=== PATIENT | female | born 1965 | race Caucasian/White ===

== ENCOUNTER 2017-10-11 08:09 | Emergency (ER) | payer OTHER ==
[~2017-10-11] VITALS: Ht 165.1 cm; Wt 91.3 kg
[2017-10-11] MEDS ORDERED: SYNT175T2 (08:26)
[2017-10-11] MEDS ORDERED: NS 1,000 ML IV ONE (10:15)
[2017-10-11] MEDS ORDERED: KETOROLAC 30 MG/ML VIAL (J1885) IV ONE (10:15)
[2017-10-11 10:27] LABS: BASO % 0.5 % (0.0-1.0); EOS # 0.1 10^3/uL (0.0-0.50); EOS % 2.3 % (0.0-3.0); IMMATURE GRANULOCYTE % 0.4 % (0-0); LYMPH # 1.8 10^3/uL (1.5-4.5); MEAN CORPUSCULAR HEMOGLOBIN 30.8 pg (27.0-33.0); MEAN CORPUSCULAR VOLUME 93.1 fl (80.0-96.0); MONO # 0.2 10^3/uL (0.0-0.8); MONO % 4.2 % (0.0-5.0); NEUTROPHILS # 3.5 10^3/uL (1.8-7.7); NEUTROPHILS % 61.6 % (36.0-66.0); PLATELET COUNT, AUTOMATED 378 10^3/uL (150-450); RED CELL DISTRIBUTION WIDTH 12.9 % (11.5-14.5); WHITE BLOOD COUNT 5.7 10^3/uL (4.0-10.0)
[2017-10-11 10:28] LABS: CONTROL LINE UCG INT CTR LINE PRESENT
[2017-10-11 10:54] LABS: ALBUMIN 4.1 GM/DL (3.2-5.2); ALBUMIN/GLOBULIN RATIO 1.41 (1.00-1.93); ALKALINE PHOSPHATASE 58 U/L (45-117); ALT/SGPT 34 U/L (12-78); ANION GAP 7 MEQ/L (8-16); AST/SGOT 20 U/L (7-37); BILIRUBIN,DIRECT 0.1 MG/DL (0.0-0.2); BILIRUBIN,TOTAL 0.4 MG/DL (0.2-1.0); BLOOD UREA NITROGEN 8 MG/DL (7-18); CALCIUM LEVEL 9.1 MG/DL (8.5-10.1); CARBON DIOXIDE LEVEL 28 MEQ/L (21-32); CHLORIDE LEVEL 106 MEQ/L (98-107); CREATININE FOR GFR 0.66 MG/DL (0.55-1.02); GLOMERULAR FILTRATION RATE > 60.0 (>51); GLUCOSE, FASTING 86 MG/DL (70-105); POTASSIUM SERUM 3.9 MEQ/L (3.5-5.1); SODIUM LEVEL 141 MEQ/L (136-145)
--- NOTE | 2017-10-11 11:22 | REP ---
Clinical: Right flank pain. Comparison: 02/19/2015. Findings: The bilateral kidneys, ureters and bladder appear normal. No perinephric stranding, hydroureteronephrosis, intrarenal or obstructing ureteral calculi are identified. Calcification in the right frank pelvis consistent with phlebolith and unchanged compared to 2014. Liver, spleen, pancreas, and bilateral adrenal glands are normal / stable. Incidental left adrenal adenoma remains unchanged. Prior cholecystectomy. The enteric system is without obstruction or acute inflammatory process. Normal terminal ileum and appendix identified in the right lower quadrant. Pelvis demonstrates normal bladder and age-appropriate uterus/adnexa with evidence for prior tubal ligation. No pelvic fluid or ascites. No adenopathy. Abdominal aorta normal caliber. No free air. Musculoskeletal structures are intact. Lung bases are clear. Impression: No acute abdominopelvic pathology appreciated. Specifically, normal appearance to the urinary tract system and normal right lower quadrant/appendix identified. Signed by Geovanny Gautam MD 10/11/2017 11:14 A
[2017-10-11] MEDS ORDERED: CIPR-249 PO (11:37)
[2017-10-11] MEDS ORDERED: CIPROFLOXACIN 500 MG TAB PO ONE (11:45)
[2017-10-11 11:47] VITALS: BP 115/75
== END 2017-10-11 11:49 | disposition home or self-care (01) ==
LOC: M ED 08:09
DX: N30.00 Acute cystitis without hematuria (principal); E07.9 Disorder of thyroid, unspecified; Z87.442 Personal history of urinary calculi
CPT/HCPCS: 74176; 80048; 80076; 81001; 84703; 85025; 87086; 96361; 96374; 99284; J1885

== ENCOUNTER → 2019-01-23 | Outpatient (CLI) | payer OTHER ==
[~2019-01-23] MED LIST: CIPR-249 PO; SYNT175T2
--- NOTE | 2019-01-23 11:43 | REP ---
Left shoulder three views History: Injury There is no acute fracture or dislocation. The joint spaces are normal in appearance. There is deformity of several left ribs. Impression: There is no acute fracture or dislocation. Electronically Signed by Rainer Camp MD 01/23/2019 11:35 A
== END ==
LOC: M LRY 10:49
PROVIDERS: ATTEND Physician Assistant
DX: S49.92XA Unspecified injury of left shoulder and upper arm, initial encounter (principal); X58.XXXA Exposure to other specified factors, initial encounter; Y92.9 Unspecified place or not applicable

== ENCOUNTER 2019-02-03 14:02 | Emergency (ER) | payer OTHER ==
[~2019-02-03] VITALS: Ht 165.1 cm; Wt 90.5 kg
[2019-02-03 14:02] VITALS: BP 146/88
[2019-02-03] MEDS ORDERED: NAPR-50 PO (15:07)
[2019-02-03] MEDS ORDERED: ULTR50TA8 PO (15:07)
== END 2019-02-03 16:48 | disposition home or self-care (01) ==
LOC: M ED 14:02
DX: M75.102 Unspecified rotator cuff tear or rupture of left shoulder, not specified as traumatic (principal); E03.9 Hypothyroidism, unspecified; Z79.899 Other long term (current) drug therapy

== ENCOUNTER → 2019-04-05 | Outpatient (CLI) | payer OTHER ==
[~2019-04-05] MED LIST changes: +CONRAY-43 43% 50ML VIAL (Q9960) As Ordered ONE; +LIDOCAINE 1% MDV 20ML VIAL As Ordered ONE; +NAPR-837 PO; +TRIAMCINOLONE ACETONIDE SUSP 40 MG/ML VIAL (J3301) As Ordered ONE; +ULTR50TA8 PO
--- NOTE | 2019-04-06 11:00 | REP ---
Left shoulder injection The procedure was performed under the direct supervision of Dr. kimbrough. The benefits and risks including but not limited to pain infection bleeding and anaphylaxis were explained to the patient and informed consent was obtained. The left glenohumeral joint space was localized using fluoroscopic guidance. The skin was prepped and draped in a sterile fashion. 1% lidocaine was used as a local anesthetic. Using fluoroscopic guidance a 22-gauge spinal needle was inserted and advanced into the joint. 1 ml of Conray 43 was injected to verify placement. 4 ml of a solution containing 3 ml of 1% lidocaine and 1 ml of Kenalog 40 mg injected. The needle was then removed. The patient tolerated the procedure well and there were no immediate complications. Less than 6 seconds of fluoroscopy time was utilized for this procedure. Reviewed by MAKI Gomes 04/05/2019 03:13 P Electronically Signed by Chato Kimbrough MD 04/06/2019 10:49 A
== END ==
LOC: M RADPRO 10:32
DX: M25.512 Pain in left shoulder (principal); M75.02 Adhesive capsulitis of left shoulder
CPT/HCPCS: 20610; 77002; J3301; Q9960

== ENCOUNTER 2019-05-17 08:07 | Emergency (ER) | payer OTHER ==
[~2019-05-17] VITALS: Ht 165.1 cm; Wt 90.9 kg
[~2019-05-17 08:07] MED LIST changes: -CONRAY-43 43% 50ML VIAL (Q9960) As Ordered ONE; -LIDOCAINE 1% MDV 20ML VIAL As Ordered ONE; -TRIAMCINOLONE ACETONIDE SUSP 40 MG/ML VIAL (J3301) As Ordered ONE
[2019-05-17] MEDS ORDERED: SYNT150T (08:20)
[2019-05-17] MEDS ORDERED: NS 1,000 ML IV ONE ×2 (10:00)
[2019-05-17] MEDS ORDERED: KETOROLAC 30 MG/ML VIAL (J1885) IV ONE (10:00)
[2019-05-17] MEDS ORDERED: ONDANSETRON 4MG/2ML VIAL (J2405) IV ONE (10:00)
[2019-05-17 10:33] LABS: APPEARANCE, URINE CLEAR (CLEAR); BACTERIA, URINE AUTO NEGATIVE (NEGATIVE); BILIRUBIN, URINE AUTO NEGATIVE (NEGATIVE); BLOOD, URINE BLOOD NEGATIVE (NEGATIVE); COLOR, URINE YELLOW (YELLOW); GLUCOSE, URINE (UA) AUTO NEGATIVE (NEGATIVE); KETONE, URINE AUTO 1+ mg/dL (NEGATIVE); LEUKOCYTE ESTERASE, URINE AUTO NEGATIVE (NEGATIVE); MUCUS, URINE SMALL (NEGATIVE); NITRITE, URINE AUTO NEGATIVE (NEGATIVE); PROTEIN, URINE AUTO NEGATIVE (NEGATIVE); RBC, URINE AUTO 2 /HPF (0-3); SPECIFIC GRAVITY URINE AUTO 1.011 (1.002-1.035); SQUAMOUS EPITHELIAL CELL UR AU 1 /HPF (0-6); UROBILINOGEN, URINE AUTO 0.2 mg/dL (0.0-2.0); WBC, URINE AUTO 2 /HPF (0-3)
[2019-05-17 10:34] LABS: BASO % 0.3 % (0.0-1.0); EOS # 0.1 10^3/uL (0.0-0.50); EOS % 1.2 % (0.0-3.0); HEMATOCRIT 43.8 % (36.0-47.0); HEMOGLOBIN 14.4 g/dl (12.0-15.5); LYMPH % 16.7 % (24.0-44.0); MEAN CORPUSCULAR HEMOGLOBIN 31.4 pg (27.0-33.0); MEAN CORPUSCULAR HGB CONC 32.9 g/dl (32.0-36.5); MEAN CORPUSCULAR VOLUME 95.4 fl (80.0-96.0); MONO # 0.3 10^3/uL (0.0-0.8); NEUTROPHILS # 4.4 10^3/uL (1.8-7.7); NEUTROPHILS % 76.6 % (36.0-66.0); PLATELET COUNT, AUTOMATED 329 10^3/uL (150-450); RED BLOOD COUNT 4.59 10^6/uL (4.00-5.40); WHITE BLOOD COUNT 5.8 10^3/uL (4.0-10.0)
[2019-05-17 10:55] LABS: ALBUMIN 3.8 GM/DL (3.2-5.2); ALT/SGPT 43 U/L (12-78); BILIRUBIN,TOTAL 0.2 MG/DL (0.2-1.0); BLOOD UREA NITROGEN 7 MG/DL (7-18); C REACTIVE PROTEIN QUANTITATIV 0.38 MG/DL (0.00-0.30); CALCIUM LEVEL 8.7 MG/DL (8.5-10.1); CARBON DIOXIDE LEVEL 29 MEQ/L (21-32); CHLORIDE LEVEL 107 MEQ/L (98-107); CREATININE FOR GFR 0.62 MG/DL (0.55-1.30); GAMMA GLUTAMYLTRANSPEPTIDASE 24 U/L (5-55); GLOMERULAR FILTRATION RATE > 60.0 (>51); GLUCOSE, FASTING 85 MG/DL (70-100); LIPASE 173 U/L (73-393); POTASSIUM SERUM 4.1 MEQ/L (3.5-5.1); SODIUM LEVEL 141 MEQ/L (136-145); TOTAL PROTEIN 6.7 GM/DL (6.4-8.2)
[2019-05-17] MEDS ORDERED: ISOVUE-370 76% 100ML VIAL (Q9967) As Ordered ONE (11:03)
[2019-05-17 11:27] LABS: HEPATITIS B SURFACE ANTIGEN NEGATIVE (NEGATIVE)
--- NOTE | 2019-05-17 11:37 | REP ---
Clinical: Right upper quadrant pain. Technique: Axial contrast enhanced images from the lung bases to the pubic symphysis with coronal and sagittal re-formations using 100 ml Isovue 370 intravenous contrast material. Comparison: 10/11/2017. Findings: Lung bases are clear. Visualized heart and pericardium normal. Stable left hepatic cyst. Spleen, pancreas, adrenal glands and kidneys are stable and within normal limits. Adenomatous changes to the left adrenal gland remain stable. 1.4 cm lower pole left renal cyst noted. Evidence of prior cholecystectomy. The enteric system is without obstruction or acute inflammatory process. Scattered colonic diverticula noted without acute diverticulitis. Pelvis demonstrates normal bladder and enlarged heterogeneous presumed myomatous uterus including exophytically left fundal fibroid. No ascites. No free air. No adenopathy. Abdominal aorta without aneurysm or dissection. Musculoskeletal structures without focal osseous abnormality. Impression: 1. No acute abdominopelvic pathology appreciated. 2. Chronic and benign findings including left adrenal adenoma, 1.4 cm left renal cyst and sigmoid diverticulosis. 3. Heterogeneous myomatous uterus including exophytic left fundal fibroid. Electronically Signed by Geovanny Gautam MD 05/17/2019 11:29 A
[2019-05-17 11:53] LABS: HEPATITIS C VIRUS ABY INDEX 0.1 INDEX (<0.8)
[2019-05-17 11:55] LABS: HEPATITIS B CORE ANTIBODY IGM NEGATIVE (NEGATIVE)
[2019-05-17 11:56] LABS: HEPATITIS A ANTIBODY IGM NEGATIVE (NEGATIVE)
[2019-05-17] MEDS ORDERED: ONDA4TAB6 PO (12:03)
[2019-05-17 12:10] VITALS: BP 120/66
--- NOTE | 2019-05-17 13:14 | ED PDOC ---
Post-Departure Follow-Up ft [facility] faxed formal report of ct abd/p for fu Myrna Knox MD May 17, 2019 13:14
== END 2019-05-17 12:35 | disposition home or self-care (01) ==
LOC: M ED 08:07
DX: B34.9 Viral infection, unspecified (principal); R11.2 Nausea with vomiting, unspecified; R19.7 Diarrhea, unspecified; R10.11 Right upper quadrant pain; E03.9 Hypothyroidism, unspecified; Z87.442 Personal history of urinary calculi; Z79.899 Other long term (current) drug therapy
CPT/HCPCS: 36415; 74177; 80053; 81001; 82977; 83690; 85025; 86140; 86705; 86709; 86803; 87340; 96361; 96374; 99284; J2405; Q9967

== ENCOUNTER 2019-10-07 07:20 | Emergency (ER) | payer OTHER ==
[~2019-10-07] VITALS: Ht 165.1 cm; Wt 94.5 kg
[~2019-10-07 07:20] MED LIST changes: +ONDA4TAB6 PO; +SYNT150T
[2019-10-07] MEDS ORDERED: LEVO112T2 PO (07:52)
[2019-10-07 07:57] LABS: BASO % 0.4 % (0.0-1.0); EOS # 0.1 10^3/uL (0.0-0.5); EOS % 1.7 % (0.0-3.0); HEMATOCRIT 46.4 % (36.0-47.0); HEMOGLOBIN 15.1 g/dl (12.0-15.5); LYMPH # 1.5 10^3/uL (1.5-5.0); MEAN CORPUSCULAR HEMOGLOBIN 30.7 pg (27.0-33.0); MEAN CORPUSCULAR HGB CONC 32.5 g/dl (32.0-36.5); MEAN CORPUSCULAR VOLUME 94.3 fl (80.0-96.0); MONO # 0.3 10^3/uL (0.0-0.8); MONO % 5.7 % (0.0-5.0); NEUTROPHILS # 3.4 10^3/uL (1.5-8.5); PLATELET COUNT, AUTOMATED 330 10^3/uL (150-450); RED BLOOD COUNT 4.92 10^6/uL (4.00-5.40); WHITE BLOOD COUNT 5.3 10^3/uL (4.0-10.0)
[2019-10-07 07:59] LABS: APPEARANCE, URINE CLEAR (CLEAR); BACTERIA, URINE AUTO NEGATIVE (NEGATIVE); BILIRUBIN, URINE AUTO NEGATIVE (NEGATIVE); BLOOD, URINE BLOOD NEGATIVE (NEGATIVE); COLOR, URINE STRAW (YELLOW); GLUCOSE, URINE (UA) AUTO NEGATIVE (NEGATIVE); KETONE, URINE AUTO TRACE mg/dL (NEGATIVE); LEUKOCYTE ESTERASE, URINE AUTO NEGATIVE (NEGATIVE); NITRITE, URINE AUTO NEGATIVE (NEGATIVE); PROTEIN, URINE AUTO NEGATIVE (NEGATIVE); RBC, URINE AUTO 2 /HPF (0-3); SPECIFIC GRAVITY URINE AUTO 1.008 (1.002-1.035); SQUAMOUS EPITHELIAL CELL UR AU 0 /HPF (0-6); UROBILINOGEN, URINE AUTO 0.2 mg/dL (0.0-2.0); WBC, URINE AUTO 0 /HPF (0-3)
[2019-10-07] MEDS ORDERED: METOCLOPRAMIDE INJ 10MG/2ML VIAL (J2765) IV ONE (08:15)
[2019-10-07] MEDS ORDERED: NS 1,000 ML IV ONE ×2 (08:15→10:45)
[2019-10-07 08:20] LABS: ALBUMIN 3.9 GM/DL (3.2-5.2); ALT/SGPT 32 U/L (12-78); AMYLASE 55 U/L (25-115); BILIRUBIN,TOTAL 0.6 MG/DL (0.2-1.0); BLOOD UREA NITROGEN 9 MG/DL (7-18); CALCIUM LEVEL 9.3 MG/DL (8.5-10.1); CARBON DIOXIDE LEVEL 28 MEQ/L (21-32); CHLORIDE LEVEL 107 MEQ/L (98-107); CREATININE FOR GFR 0.72 MG/DL (0.55-1.30); GLOMERULAR FILTRATION RATE > 60.0 (>51); GLUCOSE, FASTING 89 MG/DL (70-100); LIPASE 156 U/L (73-393); POTASSIUM SERUM 4.2 MEQ/L (3.5-5.1); SODIUM LEVEL 141 MEQ/L (136-145); TOTAL PROTEIN 6.7 GM/DL (6.4-8.2)
[2019-10-07] MEDS ORDERED: GASTROGRAFIN SOLUTION 30ML (Q9963) As Ordered ONE (08:57)
[2019-10-07] MEDS ORDERED: GASTROGRAFIN SOLUTION 30ML (Q9963) PO SCH ×2 (09:15→09:45)
[2019-10-07] MEDS: GASTROGRAFIN SOLUTION 30ML PO SCH ×2 (09:45→09:50)
[2019-10-07] MEDS ORDERED: ISOVUE-370 76% 100ML VIAL (Q9967) As Ordered ONE (10:23)
--- NOTE | 2019-10-07 11:24 | REP ---
REASON FOR EXAM: Right-sided pain. History of nausea and constipation. COMPARISON: Multiple, the latest 05/17/2019, which was within normal limits with the exception of chronic uterine fibroid changes, sigmoid diverticulosis and a benign stable adrenal gland nodule on the left. Contrast today 100 mL Isovue 370. The lung bases are clear. In the medial segment of the left lobe of the liver, there is a small round 1 cm sized focal area of low density, which shows no contrast enhancement and has water density Hounsfield unit readings. This is a cyst. There are no enhancing hepatic lesions. There are surgical clips in the gallbladder fossa from previous cholecystectomy. The spleen, pancreas, adrenal glands, and kidneys are unchanged. There is a stable left adrenal gland nodule. There is an unchanged small left renal cyst. The abdominal aorta and para-aortic regions are within normal limits. The bowel loops and their mesenteries are within normal limits. There is no free fluid or free air. There is no intra-abdominal mass or adenopathy. CT PELVIS: The bowel loops and their mesenteries are within normal limits. There is no mass or adenopathy. There is no free fluid or free air. There is an unchanged incidental exophytic uterine myoma on the left. Bone window technique throughout the exam shows no significant change in the appearance of the osseous structures. IMPRESSION: There is no evidence of acute intra-abdominal or intrapelvic disease. Findings as described above. Electronically Signed by Ruddy Hogue DO 10/07/2019 12:23 P
[2019-10-07 12:33] LABS: INFLUENZA A AMPLIFICATION NEGATIVE (NEGATIVE); INFLUENZA B AMPLIFICATION NEGATIVE (NEGATIVE)
[2019-10-07 13:23] VITALS: BP 131/71
== END 2019-10-07 13:24 | disposition home or self-care (01) ==
LOC: M ED 07:20
DX: R10.10 Upper abdominal pain, unspecified (principal); R10.32 Left lower quadrant pain; E03.9 Hypothyroidism, unspecified; Z79.899 Other long term (current) drug therapy; Z87.442 Personal history of urinary calculi
CPT/HCPCS: 36415; 74177; 80053; 81001; 82150; 82270; 83690; 85025; 87502; 87507; 96361; 96374; 99284; J2765; Q9967

== ENCOUNTER → 2020-07-09 | Outpatient (REF) | payer OTHER ==
[~2020-07-09] MED LIST changes: +IBUP200C25 PO; +LEVO112T2 PO; +MIRA3350 PO
== END ==
LOC: M SFHCLUC 10:30
PROVIDERS: ATTEND Nurse Practitioner Family
DX: R39.9 Unspecified symptoms and signs involving the genitourinary system (principal)

== ENCOUNTER 2020-07-12 14:33 | Emergency (ER) | payer OTHER ==
[~2020-07-12] VITALS: Ht 165.1 cm; Wt 93.4 kg
[~2020-07-12 14:33] MED LIST changes: -IBUP200C25 PO; -MIRA3350 PO
[2020-07-12 15:56] LABS: URINE PREG TEST NEGATIVE (NEGATIVE)
[2020-07-12] MEDS ORDERED: IBUP200C25 PO (17:31)
[2020-07-12 18:20] LABS: BASO % 0.3 % (0.0-1.0); EOS # 0.1 10^3/uL (0.0-0.5); EOS % 1.1 % (0.0-3.0); HEMATOCRIT 45.6 % (36.0-47.0); LYMPH # 1.6 10^3/uL (1.5-5.0); LYMPH % 23.7 % (24.0-44.0); MEAN CORPUSCULAR HEMOGLOBIN 30.2 pg (27.0-33.0); MEAN CORPUSCULAR HGB CONC 32.9 g/dl (32.0-36.5); MEAN CORPUSCULAR VOLUME 91.9 fl (80.0-96.0); MONO # 0.3 10^3/uL (0.0-0.8); MONO % 5.1 % (0.0-5.0); NEUTROPHILS # 4.5 10^3/uL (1.5-8.5); NEUTROPHILS % 69.5 % (36.0-66.0); PLATELET COUNT, AUTOMATED 366 10^3/uL (150-450); RED BLOOD COUNT 4.96 10^6/uL (4.00-5.40); WHITE BLOOD COUNT 6.5 10^3/uL (4.0-10.0)
[2020-07-12 18:21] LABS: ALBUMIN 4.1 GM/DL (3.2-5.2); ALT/SGPT 38 U/L (12-78); BILIRUBIN,DIRECT < 0.1 MG/DL (0.0-0.2); BILIRUBIN,TOTAL 0.3 MG/DL (0.2-1.0); LIPASE 158 U/L (73-393); TOTAL PROTEIN 7.3 GM/DL (6.4-8.2)
--- NOTE | 2020-07-12 19:41 | REPVR ---
PROCEDURE INFORMATION: Exam: CT Abdomen And Pelvis Without Contrast Exam date and time: 07/12/2020 6:39 PM Age: 54 years old Clinical indication: Abdominal pain; Additional info: Abd pain similar to prior kidney stone pain TECHNIQUE: Imaging protocol: Computed tomography of the abdomen and pelvis without contrast. Radiation optimization: All CT scans at this facility use at least one of these dose optimization techniques: automated exposure control; mA and/or kV adjustment per patient size (includes targeted exams where dose is matched to clinical indication); or iterative reconstruction. COMPARISON: 1. CT ABD/PEL W/IV ORAL CONTRAST 10/07/2019 10:[address] ABD PELVIS W/O CONTRAST 10/11/2017 10:57:[address] ABD PELVIS W/O CONTRAST 02/19/2015 3:15:35 AM FINDINGS: Lungs: The imaged portions of the lung bases are clear. The lungs were not fully imaged. Heart: No cardiomegaly or pericardial effusion. Diaphragm: Intact. Liver: There is a 12 mm cyst in the superior medial segment 4A of the left hepatic lobe, which is stable compared to the prior CT on 10/07/2019. The contour of the liver is smooth. No hepatomegaly is noted. Gallbladder and bile ducts: There has been a cholecystectomy. There is no fluid collection in the gallbladder fossa. No dilation of the bile ducts is noted. No calcified stones are seen in the common bile duct. Pancreas: Unremarkable. No dilation of the main pancreatic duct is noted. There is no inflammatory fat stranding around the pancreas to suggest acute pancreatitis. Spleen: Unremarkable. No splenomegaly is noted. Adrenals: There is a 1 cm left adrenal nodule that measures approximately 2 Hounsfield units, which is compatible with a benign adrenal adenoma that is stable compared to the prior CT abdomen and pelvis on 10/07/2019 and for which further follow-up is not necessary. The right adrenal gland is normal. Kidneys and ureters: There is a 1.4 cm lesion in the inferior pole of the left kidney that measures approximately 38 Hounsfield units, which is stable in size compared to the prior CTs on 10/07/2019 and 10/11/2017 and was previously described as a renal cyst. No stones are noted in the kidneys or ureters. There is no hydronephrosis or hydroureter. Stomach and bowel: The stomach and small bowel are unremarkable. There is mild sigmoid diverticulosis without evidence for diverticulitis. There is no evidence for a bowel obstruction, colitis, pneumatosis intestinalis, intussusception, volvulus, or perforated viscus. There is a moderate amount of formed stool in the cecum, ascending colon, and transverse colon. A mild amount of formed stool is present in the descending colon and rectum. Appendix: Normal. There is no evidence for appendicitis. Intraperitoneal space: No free air. No ascites. No asbcess. Retroperitoneal space: No fluid collection. Vasculature: There is no abdominal aortic aneurysm or intramural hematoma. Lymph nodes: No enlarged lymph nodes. Bladder: The partially distended urinary bladder is unremarkable. No stones or masses are seen in the bladder. Reproductive: The uterus is anteverted. Bilateral tubal ligation clips are in place. The ovaries are unremarkable. Bones/joints: There is no fracture or dislocation. No suspicious osteolytic or osteoblastic lesion. There are degenerative changes involving the lumbar spine. Soft tissues: There is edema in the subcutaneous tissues along the anterior aspect of the left lower ribcage. No drainable soft tissue fluid collection is noted. There is a small fat containing umbilical hernia. There is a small fat containing indirect left inguinal hernia and a small fat containing direct right inguinal hernia. IMPRESSION: 1. No acute findings in the abdomen or pelvis. 2. No stones in the kidneys, ureters, or urinary bladder. No hydronephrosis or hydroureter. 3. Small fat containing indirect left inguinal hernia and a small fat containing direct right inguinal hernia. 4. Small fat containing umbilical hernia. 5. Mild sigmoid diverticulosis without evidence for diverticulitis. 6. Moderate amount of formed stool in the cecum, ascending colon and transverse colon, and a mild amount of formed stool in the descending colon and rectum. No bowel obstruction. COMMENTS: Consistent with the [employer]'s Incidental Findings Committee white paper (J Am Jelena Radiol 2017): Any incidental adrenal lesion less than or equal to 1.0 cm is likely benign. No follow-up imaging is recommended for these lesions per consensus recommendations based on imaging criteria. Further lab evaluation could be pursued if warranted based on clinical findings. Electronically signed by: Reginaldo Pierre On 07/12/2020 19:41:06 PM
[2020-07-12] MEDS ORDERED: FLEET ENEMA PR ONE (20:00)
[2020-07-12 21:15] VITALS: BP 115/71
[2020-07-12] MEDS ORDERED: MIRA3350 PO (21:20)
== END 2020-07-12 21:37 | disposition home or self-care (01) ==
LOC: M ED 14:33
DX: K59.00 Constipation, unspecified (principal); E03.9 Hypothyroidism, unspecified; Z87.442 Personal history of urinary calculi; Z79.899 Other long term (current) drug therapy

== ENCOUNTER → 2020-12-27 | Outpatient (CLI) | payer OTHER ==
[~2020-12-27] MED LIST changes: +IBUP200C25 PO; +MIRA3350 PO
== END ==
LOC: M PLALAB 11:20
PROVIDERS: ATTEND Nurse Practitioner Family
DX: E89.0 Postprocedural hypothyroidism (principal)

== ENCOUNTER 2021-04-14 17:25 | Emergency (ER) | payer OTHER ==
[~2021-04-14] VITALS: Ht 165.1 cm; Wt 95.3 kg
[2021-04-14] MEDS ORDERED: NS 1,000 ML IV ONE (18:15)
[2021-04-14] MEDS ORDERED: KETOROLAC 30 MG/ML 1ML VIAL IV ONE (18:15)
[2021-04-14 18:26] LABS: BASO % 0.3 % (0.0-1.0); EOS # 0.3 10^3/uL (0.0-0.5); EOS % 3.1 % (0.0-3.0); HEMATOCRIT 46.1 % (36.0-47.0); HEMOGLOBIN 14.9 g/dl (12.0-15.5); LYMPH # 2.1 10^3/uL (1.5-5.0); LYMPH % 20.7 % (24.0-44.0); MEAN CORPUSCULAR HEMOGLOBIN 29.8 pg (27.0-33.0); MEAN CORPUSCULAR HGB CONC 32.3 g/dl (32.0-36.5); MEAN CORPUSCULAR VOLUME 92.2 fl (80.0-96.0); MONO # 0.6 10^3/uL (0.0-0.8); MONO % 5.5 % (2.0-8.0); NEUTROPHILS # 7.1 10^3/uL (1.5-8.5); NEUTROPHILS % 70.1 % (36.0-66.0); PLATELET COUNT, AUTOMATED 336 10^3/uL (150-450); WHITE BLOOD COUNT 10.1 10^3/uL (4.0-10.0)
--- NOTE | 2021-04-14 18:47 | REPVR ---
PROCEDURE INFORMATION: Exam: CT Abdomen And Pelvis Without Contrast Exam date and time: 04/14/2021 5:59 PM Age: 55 years old Clinical indication: Abdominal pain; Flank; Right; Additional info: Right flank pain TECHNIQUE: Imaging protocol: Computed tomography of the abdomen and pelvis without contrast. Radiation optimization: All CT scans at this facility use at least one of these dose optimization techniques: automated exposure control; mA and/or kV adjustment per patient size (includes targeted exams where dose is matched to clinical indication); or iterative reconstruction. COMPARISON: CT ABD PELVIS W/O CONTRAST 07/12/2020 6:39 PM FINDINGS: Liver: 1 cm left hepatic cyst. A few additional tiny hepatic hypodensities are too small to characterize. Gallbladder and bile ducts: Previous cholecystectomy. Pancreas: Normal. No ductal dilation. Spleen: Normal. No splenomegaly. Adrenal glands: 1.2 cm left adrenal gland nodule, probable adenoma. Finding is stable. Kidneys and ureters: No hydronephrosis or hydroureter. Stomach and bowel: Mild diverticulosis without diverticulitis. Appendix: No evidence of appendicitis. Intraperitoneal space: There is nonspecific infiltration involving the left anterolateral abdominal wall superiorly. Vasculature: Prominent phleboliths within the right pelvis. Lymph nodes: Unremarkable. No enlarged lymph nodes. Urinary bladder: Unremarkable as visualized. Reproductive: Previous bilateral tubal ligation. Bones/joints: There are degenerative changes involving the spine predominantly at L5-S1. Soft tissues: Left breast implant is incompletely visualized. Small fat containing umbilical hernia. IMPRESSION: 1. Nonspecific infiltration involving left anterolateral abdominal wall superiorly. Consider contusion or cellulitis. 2. No obstructive uropathy. 3. Non emergent findings as above. COMMENTS: Consistent with the [employer]'s Incidental Findings Committee white paper (J Am Jelena Radiol 2017): For any incidental adrenal lesion greater than 1 cm but less than 4 cm classified in this report as benign, likely benign, or containing fat (including classification as an adenoma or myelolipoma), no follow-up imaging is recommended per consensus recommendations based on imaging criteria. Further lab evaluation could be pursued if warranted based on clinical findings. Electronically signed by: Nura Torres On 04/14/2021 18:46:40 PM
[2021-04-14] MEDS ORDERED: cefTRIAXone SOD 1 GM in D5W MINI-BAG PLUS 50 ML IV ONE (19:00)
[2021-04-14 19:34] VITALS: BP 122/65
[2021-04-14] MEDS ORDERED: SULF1TAB23 PO (20:16)
--- NOTE | 2021-04-15 06:39 | ED PDOC ---
Post-Departure Follow-Up ft [facility] faxed formal report of ct abd/p for fu Myrna Knox MD Apr 15, 2021 06:39
== END 2021-04-14 20:33 | disposition home or self-care (01) ==
LOC: M ED 17:25
DX: N39.0 Urinary tract infection, site not specified (principal); E03.9 Hypothyroidism, unspecified; Z79.890 Hormone replacement therapy
CPT/HCPCS: 74176; 80047; 81001; 85025; 87088; 87186; 96361; 96365; 96375; 99284; J0696; J1885

== ENCOUNTER → 2021-12-18 | Outpatient (CLI) | payer OTHER ==
[~2021-12-18] MED LIST changes: +SULF1TAB23 PO
== END ==
LOC: M RAD 06:25
PROVIDERS: ATTEND Family Medicine
DX: M25.512 Pain in left shoulder (principal); M75.102 Unspecified rotator cuff tear or rupture of left shoulder, not specified as traumatic; S43.432A Superior glenoid labrum lesion of left shoulder, initial encounter; Y92.9 Unspecified place or not applicable; Y93.9 Activity, unspecified; Y99.9 Unspecified external cause status

== ENCOUNTER 2022-01-04 06:51 | Emergency (ER) | payer OTHER ==
[~2022-01-04] VITALS: Ht 165.1 cm; Wt 98.4 kg
[2022-01-04] MEDS ORDERED: NS 1,000 ML IV ONE (07:45)
[2022-01-04] MEDS ORDERED: ONDANSETRON 4MG/2ML VIAL IV ONE (07:45)
[2022-01-04 08:50] LABS: LYMPH # 0.3 10^3/uL (1.5-5.0); LYMPH % 17.9 % (24.0-44.0); MEAN CORPUSCULAR HEMOGLOBIN 29.8 pg (27.0-33.0); MEAN CORPUSCULAR HGB CONC 31.8 g/dl (32.0-36.5); MEAN CORPUSCULAR VOLUME 93.9 fl (80.0-96.0); MONO # 0.1 10^3/uL (0.0-0.8); MONO % 5.4 % (2.0-8.0); NEUTROPHILS # 1.4 10^3/uL (1.5-8.5); NEUTROPHILS % 76.2 % (36.0-66.0); PLATELET COUNT, AUTOMATED 106 10^3/uL (150-450); RED BLOOD COUNT 1.81 10^6/uL (4.00-5.40); WHITE BLOOD COUNT 1.8 10^3/uL (4.0-10.0)
[2022-01-04 08:53] LABS: HEMOGLOBIN 5.4 g/dl (12.0-15.5)
[2022-01-04 09:52] LABS: BASO % 0.2 % (0.0-1.0); EOS % 0.2 % (0.0-3.0); HEMATOCRIT 43.7 % (36.0-47.0); LYMPH # 0.8 10^3/uL (1.5-5.0); LYMPH % 16.4 % (24.0-44.0); MEAN CORPUSCULAR HEMOGLOBIN 29.7 pg (27.0-33.0); MEAN CORPUSCULAR HGB CONC 32.7 g/dl (32.0-36.5); MEAN CORPUSCULAR VOLUME 90.9 fl (80.0-96.0); MONO # 0.2 10^3/uL (0.0-0.8); MONO % 3.3 % (2.0-8.0); NEUTROPHILS # 3.9 10^3/uL (1.5-8.5); NEUTROPHILS % 79.7 % (36.0-66.0); RED BLOOD COUNT 4.81 10^6/uL (4.00-5.40); WHITE BLOOD COUNT 4.9 10^3/uL (4.0-10.0)
[2022-01-04 09:53] LABS: HEMOGLOBIN 14.3 g/dl (12.0-15.5); PLATELET COUNT, AUTOMATED 302 10^3/uL (150-450)
[2022-01-04 09:55] LABS: INR 0.97; PARTIAL THROMBOPLASTIN TIME 27.5 SECONDS (25.9-37.0); PROTHROMBIN TIME 13.3 SECONDS (12.7-14.5)
[2022-01-04] MEDS ORDERED: ACETAMINOPHEN 500 MG TAB PO ONE (10:00)
[2022-01-04] MEDS ORDERED: KETOROLAC 30 MG/ML 1ML VIAL IV ONE (10:00)
[2022-01-04] MEDS ORDERED: METOCLOPRAMIDE INJ 10MG/2ML VIAL (J2765 PER 1) IV ONE (10:00)
[2022-01-04 10:49] LABS: ALBUMIN 3.7 GM/DL (3.2-5.2); ALT/SGPT 26 U/L (12-78); BILIRUBIN,DIRECT 0.1 MG/DL (0.0-0.2); BILIRUBIN,TOTAL 0.4 MG/DL (0.2-1.0); BLOOD UREA NITROGEN 9 MG/DL (7-18); CALCIUM LEVEL 8.9 MG/DL (8.5-10.1); CARBON DIOXIDE LEVEL 23 MEQ/L (21-32); CHLORIDE LEVEL 104 MEQ/L (98-107); CREATININE FOR GFR 0.63 MG/DL (0.55-1.30); FREE THYROXINE INDEX 5.2 % (1.3-4.8); GLOMERULAR FILTRATION RATE > 60.0 (>51); GLUCOSE, FASTING 89 MG/DL (70-100); POTASSIUM SERUM 4.2 MEQ/L (3.5-5.1); SODIUM LEVEL 138 MEQ/L (136-145); T UPTAKE 35 % (30-39); THYROXINE (T4) 14.9 UG/DL (4.5-12.0); TOTAL PROTEIN 6.6 GM/DL (6.4-8.2)
[2022-01-04] MEDS ORDERED: PSEUDOEPHEDRINE 30 MG TAB PO STA (10:49)
[2022-01-04] MEDS ORDERED: ONDA4TAB6 PO (11:25)
[2022-01-04] MEDS ORDERED: PSEU120T19 PO (11:25)
[2022-01-04 11:31] VITALS: BP 135/77
== END 2022-01-04 11:44 | disposition home or self-care (01) ==
LOC: M ED 06:51
DX: R11.2 Nausea with vomiting, unspecified (principal); R09.81 Nasal congestion; U07.1 COVID-19; E03.9 Hypothyroidism, unspecified; Z87.442 Personal history of urinary calculi; Z79.899 Other long term (current) drug therapy; Z79.890 Hormone replacement therapy
CPT/HCPCS: 36415; 80048; 80076; 84436; 84443; 84479; 85025; 85610; 85730; 96361; 96374; 96375; 99284; J1885; J2405; J2765

== ENCOUNTER 2022-02-18 11:00 | Day surgery (SDC) | payer OTHER ==
[~2022-02-18] VITALS: Ht 165.1 cm; Wt 93.0 kg
[~2022-02-18 11:00] MED LIST changes: +LORA-674 PO; +NS 1,000 ML IV ONE; +PSEU120T19 PO; +SEMA1PEN4 SQ; +TIRO112C3 PO; +VITMTA PO
[2022-02-18] MEDS ORDERED: propofoL 200 MG/20 ML VIAL As Ordered ONE ×2 (12:24→13:17)
[2022-02-18] MEDS ORDERED: LIDOCAINE 2% 100MG/5ML SDV (FOR ANES.) As Ordered ONE (12:24)
[2022-02-18 13:52] VITALS: BP 107/68
== END 2022-02-18 14:05 | disposition home or self-care (01) ==
LOC: M OPP 11:00
PROVIDERS: ATTEND Internal Medicine Gastroenterology
DX: K64.0 First degree hemorrhoids (principal); R10.31 Right lower quadrant pain; R12 Heartburn; Z79.899 Other long term (current) drug therapy; E89.0 Postprocedural hypothyroidism; Z92.3 Personal history of irradiation

== ENCOUNTER → 2022-07-28 | Outpatient (CLI) | payer OTHER ==
[~2022-07-28] MED LIST changes: -NS 1,000 ML IV ONE
== END ==
LOC: M WHC 14:12
PROVIDERS: ATTEND Nurse Practitioner Primary Care
DX: N64.4 Mastodynia (principal); Z98.82 Breast implant status
CPT/HCPCS: 76642; 77066; G0279

== ENCOUNTER → 2022-09-30 | Outpatient (CLI) | payer OTHER | LOC: M WHC 11:01 | PROVIDERS: ATTEND Nurse Practitioner Primary Care | DX: M85.80 Other specified disorders of bone density and structure, unspecified site (principal) ==

== ENCOUNTER 2023-03-29 11:58 | Emergency (ER) | payer OTHER ==
[~2023-03-29] VITALS: Ht 162.6 cm; Wt 93.8 kg
[2023-03-29] MEDS ORDERED: NORCO, ANEXSIA 5/325MG TABLET (HYDROcodone/ACETAMINOPHEN) PO ONE (13:55)
[2023-03-29] MEDS ORDERED: HYDR-3713 PO (14:25)
[2023-03-29 14:40] VITALS: BP 140/70
== END 2023-03-29 14:54 | disposition home or self-care (01) ==
LOC: M ED 11:58
DX: S42.251A Displaced fracture of greater tuberosity of right humerus, initial encounter for closed fracture (principal); W19.XXXA Unspecified fall, initial encounter; Y92.89 Other specified places as the place of occurrence of the external cause; Y93.89 Activity, other specified; Y99.8 Other external cause status; M81.0 Age-related osteoporosis without current pathological fracture; Z79.899 Other long term (current) drug therapy

== ENCOUNTER → 2023-03-31 | Outpatient (CLI) | payer OTHER ==
[~2023-03-31] MED LIST changes: +HYDR-3713 PO
== END ==
LOC: M PLAIMG 09:43
PROVIDERS: ATTEND Physician Assistant
DX: S42.251A Displaced fracture of greater tuberosity of right humerus, initial encounter for closed fracture (principal); M25.011 Hemarthrosis, right shoulder; M19.011 Primary osteoarthritis, right shoulder; X58.XXXA Exposure to other specified factors, initial encounter; Y92.9 Unspecified place or not applicable; Y93.9 Activity, unspecified; Y99.9 Unspecified external cause status

== ENCOUNTER 2023-04-07 10:44 | Day surgery (SDC) | payer OTHER ==
[~2023-04-07] VITALS: Ht 162.6 cm; Wt 93.9 kg
[~2023-04-07 10:44] MED LIST changes: +OMEP40CA5 PO; +OXYC1TAB23; +ceFAZolin SOD 2 GM in IV 1 EA IV ONE
[2023-04-07] MEDS ORDERED: MIDAZOLAM INJ 2MG/2ML VIAL As Ordered ONE (12:40)
[2023-04-07] MEDS ORDERED: fentaNYL 100 MCG/2 ML INJECTION As Ordered ONE (12:40)
[2023-04-07] MEDS ORDERED: KETOROLAC 60MG 2ML VIAL As Ordered ONE (12:41)
[2023-04-07] MEDS ORDERED: ONDANSETRON 4MG 2ML VIAL As Ordered ONE (12:41)
[2023-04-07] MEDS ORDERED: SUGAMMADEX SODIUM 500 MG/5 ML VIAL (BRIDION) As Ordered ONE (12:42)
[2023-04-07] MEDS ORDERED: LIDOCAINE 2% 100MG/5ML SDV (FOR ANES.) As Ordered ONE (12:42)
[2023-04-07] MEDS ORDERED: propofoL 200 MG/20 ML VIAL As Ordered ONE ×2 (12:42→14:24)
[2023-04-07] MEDS ORDERED: ROCURONIUM BROMIDE 50MG/5ML VIAL As Ordered ONE (12:42)
[2023-04-07] MEDS ORDERED: ACETAMINOPHEN 1000MG 100ML IV BAG As Ordered ONE (12:54)
[2023-04-07] MEDS ORDERED: LIDOCAINE W/EPINEPHRINE 1% 20ML VIAL As Ordered ONE (13:39)
[2023-04-07] MEDS ORDERED: HYDROmorphone HCL 2MG/ML 1ML VIAL As Ordered ONE (14:35)
[2023-04-07] MEDS ORDERED: TRANEXAMIC ACID 100 MG/ML 10ML VIAL As Ordered ONE ×2 (15:58→16:01)
[2023-04-07] MEDS ORDERED: LR 1,000 ML IV SCH (16:30)
[2023-04-07] MEDS ORDERED: ONDANSETRON 4MG 2ML VIAL IV PRN (16:30)
[2023-04-07] MEDS: oxyCODONE 5MG TAB PO PRN ×2 (16:55→17:30)
[2023-04-07] MEDS: HYDROMORPHONE HCL 0.5 MG/ 0.5 ML SYRINGE IV PRN ×2 (16:55→17:02)
[2023-04-07] MEDS: fentaNYL 100 MCG/2 ML INJECTION IV PRN ×2 (17:09→17:14)
[2023-04-07] MEDS ORDERED: MIDAZOLAM INJ 2MG/2ML VIAL IV PRN (17:20)
[2023-04-07] MEDS ORDERED: LIDOCAINE 1% SDV 5ML VIAL PN ONE (17:20)
[2023-04-07] MEDS ORDERED: fentaNYL 100 MCG/2 ML INJECTION IV PRN (17:20)
[2023-04-07] MEDS ORDERED: ROPIvacaine 0.5% 30ML VIAL PN ONE (17:20)
[2023-04-07] MEDS ORDERED: EPINEPHrine INJ 1 MG/ML 1ML AMP PN ONE (17:20)
[2023-04-07 19:25] VITALS: BP 119/56
== END 2023-04-07 19:27 | disposition home or self-care (01) ==
LOC: M SDC 10:44
PROVIDERS: ATTEND Orthopaedic Surgery Hand Surgery
DX: S42.201A Unspecified fracture of upper end of right humerus, initial encounter for closed fracture (principal); W19.XXXA Unspecified fall, initial encounter; Y92.89 Other specified places as the place of occurrence of the external cause; Q79.8 Other congenital malformations of musculoskeletal system; F32.A Depression, unspecified; E03.9 Hypothyroidism, unspecified; M81.0 Age-related osteoporosis without current pathological fracture; K21.9 Gastro-esophageal reflux disease without esophagitis; Z79.899 Other long term (current) drug therapy; Z79.890 Hormone replacement therapy; Z92.3 Personal history of irradiation
CPT/HCPCS: 23615; 76000; 93005; C1713; J0131; J0690; J1100; J1170; J2250; J2405; J3010

== ENCOUNTER → 2023-04-09 | Outpatient (CLI) | payer OTHER ==
[~2023-04-09] MED LIST changes: -ceFAZolin SOD 2 GM in IV 1 EA IV ONE
== END ==
LOC: M SOG 10:50
PROVIDERS: ATTEND Physician Assistant
DX: S42.241A 4-part fracture of surgical neck of right humerus, initial encounter for closed fracture (principal); X58.XXXA Exposure to other specified factors, initial encounter; Y92.9 Unspecified place or not applicable; Y99.9 Unspecified external cause status

== ENCOUNTER → 2023-05-07 | Outpatient (CLI) | payer OTHER | LOC: M SOG 08:51 | PROVIDERS: ATTEND Physician Assistant | DX: S42.241D 4-part fracture of surgical neck of right humerus, subsequent encounter for fracture with routine healing (principal) ==

== ENCOUNTER → 2023-07-01 | Outpatient (CLI) | payer OTHER ==
[2023-07-01 12:48] LABS: BASO % 0.5 % (0.0-1.0); EOS % 0.5 % (0.0-3.0); HEMATOCRIT 42.4 % (36.0-47.0); HEMOGLOBIN 13.9 g/dl (12.0-15.5); LYMPH # 1.2 10^3/uL (1.5-5.0); MEAN CORPUSCULAR HEMOGLOBIN 30.7 pg (27.0-33.0); MEAN CORPUSCULAR HGB CONC 32.8 g/dl (32.0-36.5); MEAN CORPUSCULAR VOLUME 93.6 fl (80.0-96.0); MONO # 0.4 10^3/uL (0.0-0.8); NEUTROPHILS # 5.8 10^3/uL (1.5-8.5); NEUTROPHILS % 77.9 % (36.0-66.0); PLATELET COUNT, AUTOMATED 429 10^3/uL (150-450); RED BLOOD COUNT 4.53 10^6/uL (4.00-5.40); WHITE BLOOD COUNT 7.4 10^3/uL (4.0-10.0)
[2023-07-01 13:08] LABS: LIPASE 38 U/L (12-53)
[2023-07-01 13:09] LABS: AMYLASE 76 U/L (30-118)
[2023-07-01 13:10] LABS: ALBUMIN 4.3 G/DL (3.2-5.2); ALKALINE PHOSPHATASE 105 U/L (46-116); ALT/SGPT 27 U/L (7.0-40); AST/SGOT 24 U/L (<34); BILIRUBIN,TOTAL 0.7 MG/DL (0.3-1.2); BLOOD UREA NITROGEN 6 MG/DL (9-23); CALCIUM LEVEL 10.1 MG/DL (8.5-10.1); CARBON DIOXIDE LEVEL 27 MMOL/L (20-31); CHLORIDE LEVEL 102 MMOL/L (98-107); CREATININE FOR GFR 0.63 MG/DL (0.55-1.30); GLOMERULAR FILTRATION RATE > 60.0 (>51); GLUCOSE, FASTING 107 MG/DL (60-100); POTASSIUM SERUM 4.2 MMOL/L (3.5-5.1); SODIUM LEVEL 138 MMOL/L (136-145); TOTAL PROTEIN 7.1 G/DL (5.7-8.2)
== END ==
LOC: M WUC 09:23
PROVIDERS: ATTEND Physician Assistant
DX: R10.84 Generalized abdominal pain (principal)

== ENCOUNTER → 2023-07-08 | Outpatient (CLI) | payer OTHER | LOC: M SOG 08:07 | PROVIDERS: ATTEND Orthopaedic Surgery Hand Surgery | DX: S42.241D 4-part fracture of surgical neck of right humerus, subsequent encounter for fracture with routine healing (principal); Y93.9 Activity, unspecified; Y92.9 Unspecified place or not applicable ==

== ENCOUNTER → 2024-01-13 | Outpatient (CLI) | payer OTHER ==
[~2024-01-13] MED LIST changes: +LORA-1041 PO; -LORA-674 PO
== END ==
LOC: M SOG 08:12
PROVIDERS: ATTEND Physician Assistant
DX: S42.241D 4-part fracture of surgical neck of right humerus, subsequent encounter for fracture with routine healing (principal)

== ENCOUNTER → 2024-01-26 | Outpatient (CLI) | payer OTHER ==
[~2024-01-26] MED LIST changes: +ISOVUE-300 61% 100ML VIAL As Ordered ONE; +LIDOCAINE 1% MDV 20ML VIAL As Ordered ONE
== END ==
LOC: M RAD 13:57
PROVIDERS: ATTEND Orthopaedic Surgery Hand Surgery
DX: S42.241D 4-part fracture of surgical neck of right humerus, subsequent encounter for fracture with routine healing (principal)
CPT/HCPCS: 23350; 73201; 77002; Q9967

== ENCOUNTER → 2024-02-22 | Outpatient (REF) ==
[~2024-02-22] MED LIST changes: -ISOVUE-300 61% 100ML VIAL As Ordered ONE; -LIDOCAINE 1% MDV 20ML VIAL As Ordered ONE
== END ==
LOC: M PLAIMG 13:11
PROVIDERS: ATTEND Internal Medicine
DX: Z53.9 Procedure and treatment not carried out, unspecified reason (principal)

== ENCOUNTER → 2024-02-24 | Outpatient (REF) | LOC: M RAD 12:26 → M PLAIMG 12:26 | PROVIDERS: ATTEND Internal Medicine | DX: M43.07 Spondylolysis, lumbosacral region (principal); M79.601 Pain in right arm ==

== ENCOUNTER → 2024-05-22 | Outpatient (CLI) | payer OTHER ==
[~2024-05-22] MED LIST changes: +CAPS0.022 TOP; +CYMB1CAP5 PO; +DICL20GE TP; +ISOVUE-300 61% 100ML VIAL As Ordered ONE; +LIDOCAINE 1% MDV 20ML VIAL As Ordered ONE; +ONDA-282 PO; -ONDA4TAB6 PO; +THERTAB52 PO; +TRIAMCINOLONE ACETONIDE SUSP 40MG/ML 1ML VIAL As Ordered ONE
== END ==
LOC: M RAD 13:27
PROVIDERS: ATTEND Physician Assistant
DX: M25.511 Pain in right shoulder (principal)
CPT/HCPCS: 20610; 77002; J0665; J3301; Q9967